=== PATIENT | female | born 1930 | race Caucasian/White ===

== ENCOUNTER 2017-05-02 09:15 | Emergency (ER) | payer MEDICARE, BC ==
[~2017-05-02] VITALS: Ht 160 cm; Wt 65.8 kg
--- NOTE | ~2017-05-02 | CR150 ---
[facility] A Service of [facility] & [facility] / [facility] RADIOLOGY TEXT RESULTS PATIENT: DINORAH CORRALES LOCATION: [facility] : 32 UNIT #: [id number] AGE: [address]: Davin Leon DO SEX: F ORDER DR: [id number] [facility] [address] [place], [place] [address] [id number] E MR#: [id number] Acc #: [id number] NAME: DINORAH CORRALES : 1930 SEX: F STUDY DATE/TIME: 05/02/2017 11:22 UNIT: [facility] ROOM: STUDY DESCRIPTION: CR Hip Min 2 Views Lt Attending Physician: Davin Leon D.O. Ordering Physician: Davin Leon D.O. Primary Care Physician: George Vázquez M.D. MEDICAL IMAGING REPORT This report is preliminary unless electronic signature is present EXAM Left two-view HISTORY Hip pain for 3 days. Known arthritis. TECHNIQUE Frontal view of the pelvis and a frog-leg view of the left hip reviewed. FINDINGS There is no acute fracture, dislocation or radiopaque foreign body suspected. There are vascular calcifications present. Partly re-demonstrated are degenerative changes in the lower lumbar spine. Sacrum is mostly obscured by overlying bowel gas and stool. IMPRESSION No acute fracture, dislocation or bone destruction appreciated left hip. Partly seen are degenerative changes of the lower lumbar spine. Dictated by... Karolyn Vidal M.D. THIS IS AN ELECTRONICALLY VERIFIED REPORT Karolyn Vidal M.D. at 05/03/2017 3:54 PM SAC/pcl TD: 05/03/2017 15:17 JOB #: [id number] MEDICAL IMAGING REPORT Page 1 of 1 COPY
--- NOTE | ~2017-05-02 | CT4 ---
[facility] A Service of [facility] & [facility] RADIOLOGY TEXT RESULTS PATIENT: DINORAH CORRALES LOCATION: [facility] : 32 UNIT #: [id number] AGE: [address]: Davin Leon DO SEX: F ORDER DR: [id number] [facility] [address] [place], [place] [address] [id number] E MR#: [id number] Acc #: [id number] NAME: DINORAH CORRALES : 1930 SEX: F STUDY DATE/TIME: 05/02/2017 12:46 UNIT: [facility] ROOM: STUDY DESCRIPTION: CT Abd and Pelv Wo Cont Attending Physician: Davin Leon D.O. Ordering Physician: Davin Leon D.O. Primary Care Physician: George Vázquez M.D. MEDICAL IMAGING REPORT This report is preliminary unless electronic signature is present EXAM CT abdomen and pelvis without contrast HISTORY Back pain and left hip pain for 2 days. No injury. TECHNIQUE CT abdomen and pelvis was performed without contrast. This CT exam was performed with one or more of the following radiation dose reduction techniques: automatic exposure control, adjustment of mA and/or kV according to patient size, and iterative reconstruction. FINDINGS CT ABDOMEN: There is a large hiatal hernia containing nearly the entire stomach, a large amount of fat, and portions of the transverse colon and splenic flexure of the colon. This is stable compared to CT 02/08/2016. Stable hemorrhagic or proteinaceous cyst in the lateral mid-right kidney measuring 1.6 cm, and stable 1 cm hemorrhagic or proteinaceous cyst in the upper pole left kidney. No renal calculi. No hydronephrosis. Cholecystectomy. The liver, spleen, pancreas, and adrenal glands are normal. Normal caliber abdominal aorta. No bowel dilatation. No ascites. Tiny umbilical hernia containing fat. CT PELVIS: Extensive sigmoid diverticulosis. No diverticulitis. No pelvic free fluid or inflammatory changes. Hysterectomy. Urinary bladder is unremarkable. Ezee-ve-sjumephd multilevel degenerative changes lower thoracic and lumbar spine. IMPRESSION 1. No acute findings. 2. Large hiatal hernia is stable compared to CT 02/08/2016. [facility]. [facility] A Service of [facility] & [facility] RADIOLOGY TEXT RESULTS PATIENT: DINORAH CORRALES LOCATION: [facility] : 32 UNIT #: [id number] AGE: [address]: Davin Leon DO SEX: F ORDER DR: 3. Sigmoid diverticulosis but no evidence of diverticulitis. 4. Incidental bilateral hemorrhagic or proteinaceous renal cysts. 5. Cholecystectomy and hysterectomy. Dictated by... Brandt Hurt M.D. THIS IS AN ELECTRONICALLY VERIFIED REPORT Brandt Hurt M.D. at 05/03/2017 3:51 PM DFL/pcl TD: 05/03/2017 15:44 JOB #: [id number] MEDICAL IMAGING REPORT Page 1 of 1 COPY
--- NOTE | ~2017-05-02 | CR181 ---
[facility] A Service of [facility] & [facility] RADIOLOGY TEXT RESULTS PATIENT: DINORAH CORRALES LOCATION: [facility] : 32 UNIT #: [id number] AGE: [address]: Davin Leon DO SEX: F ORDER DR: [id number] [facility] [address] [place], [place] [address] [id number] E MR#: [id number] Acc #: [id number] NAME: DINORAH CORRALES : 1930 SEX: F STUDY DATE/TIME: 05/02/2017 11:21 UNIT: [facility] ROOM: STUDY DESCRIPTION: CR Lumbar Spine 2 or 3 Views Attending Physician: Davin Leon D.O. Ordering Physician: Davin Leon D.O. Primary Care Physician: George Vázquez M.D. MEDICAL IMAGING REPORT This report is preliminary unless electronic signature is present EXAM Lumbar spine series 2 or 3 views HISTORY Pain lumbar spine, left hip for 3 days. Patient has arthritis. No known injury. TECHNIQUE AP, lateral and lumbosacral views lumbar spine reviewed. COMPARISON STUDIES 06/15/2015. FINDINGS There is exaggerated lumbar lordosis and exaggerated visualized thoracic kyphosis. There is anterolisthesis of L4 on L5 by about a centimeter, grade 1-2, probably due to facet arthritis. There is also grade 1 anterolisthesis of L5 on S1, which could be due to facet arthritis or pars defects. There is retrolisthesis of L2 on L3 and L1 on L2 by about 5 mm at L2-L3 and 5 mm at L1-L2. This compression deformity of T12 and to a lesser extent T11, which I believe is chronic, centered at the superior endplates. There are vascular calcifications in the abdominal aorta. There is vacuum disc formation with associated loss of disc at the L5-S1 level. IMPRESSION 1. Multilevel lumbar degenerative changes with degenerative anterolisthesis of L4 on L5 and anterolisthesis of L5 on S1, either due to facet arthritis or pars defects. Degenerative retrolisthesis of L1 on L2 and L2 on L3. This is associated with exaggerated lumbar lordosis and exaggerated thoracic kyphosis and some mild chronic compression deformities at T12 and T11. Facet degenerative STS. [facility] A Service of [facility] & [facility] RADIOLOGY TEXT RESULTS PATIENT: DINORAH CORRALES LOCATION: [facility] : 32 UNIT #: [id number] AGE: [address]: Davin Leon DO SEX: F ORDER DR: change present lower lumbar levels with multilevel loss of intervertebral disc height. Nothing to suggest acute fracture or traumatic malalignment. Dictated by... Karolyn Vidal M.D. THIS IS AN ELECTRONICALLY VERIFIED REPORT Karolyn Vidal M.D. at 05/03/2017 3:54 PM SAC/pcl TD: 05/03/2017 15:14 JOB #: [id number] MEDICAL IMAGING REPORT Page 1 of 1 COPY
[~2017-05-02 09:15] MED LIST: ACETAMINOPHEN PO; BENTYL10 MG DOB; CELEBREX PO; CENTRUM SILVER PO; COZAAR PO; DARVOCET-N 1001 TAB PO; DIOVAN PO; DSS100 M1 PO; HYDROCODON-ACE1 EAC2 PO; HYDROCODON-ACE1 EAC9 PO; HYDROCODONE-A1 UDTA3 PO; IRON1 TA1 PO; LANSOPRAZOLE30 MG PO; LEVOTHROID88 MCG PO; LEVOTHYROXINE88 MCG PO; LORTAB 7.5-5001 TAB PO; LOSARTAN POTAS100 MG PO; NABUMETONE PO; NEXIUM PO; PHENERGAN PO; PREVACID PO; SYNTHROID PO; SYNTHROID88 MCG PO; THERA-GESIC PLU85 GM TOP; VIBRAMYCIN100 M1 PO; VIT B-12 PO; VIT E PO; VITAMIN D400 UNI2; ZANTAC PO; ZANTAC150 MG PO; ZOFRAN PO; ZYRTEC10 M2 PO
[2017-05-02 11:29] LABS: BASOPHIL% 0.5 % (0-2.5); EOSINOPHIL% 0.6 % (0.0-7.0); HEMATOCRIT 34.4 % (35.0-45.0); HEMOGLOBIN 11.3 gm/dL (12.0-16.0); LYMPHOCYTE# 1.1 X10e3 (1.0-3.5); LYMPHOCYTE% 18.2 % (17.0-45.0); MEAN CELL VOLUME 97.3 FL (83-96); MEAN CORPUSCULAR HEMOGLOBIN 32.1 PG (28-34); MEAN PLATELET VOLUME 8.5 FL (6.5-11.5); MONOCYTE# 0.4 X10e3 (0-1.0); MONOCYTE% 7.3 % (3.0-12.0); NEUTROPHIL# 4.3 X10e3 (1.5-7.1); NEUTROPHIL% 73.4 % (40-75); PLATELET COUNT 284 X10e3 (140-420); RED BLOOD COUNT 3.53 X10e (3.90-5.30); RED CELL DISTRIBUTION WIDTH 13.7 % (11.0-15.5); WHITE BLOOD COUNT 5.8 X10e3 (4.0-10.5)
[2017-05-02 11:40] LABS: DIFF IND NO
[2017-05-02 11:45] LABS: PARTIAL THROMBOPLASTIN TIME 21.3 SECONDS (23.5-31.3)
[2017-05-02 12:02] LABS: ALBUMIN SERUM 4.2 g/dL (3.5-5.0); BILIRUBIN, DIRECT 0.2 mg/dL (0.0-0.2); BILIRUBIN,INDIRECT 0.3 mg/dL (0.0-0.9); BILIRUBIN,TOTAL 0.5 mg/dL (0.2-2.0); CALCIUM SERUM 9.6 mg/dL (8.4-10.2); CREATININE SERUM 0.8 mg/dL (0.6-1.4); GLOM FILT RATE Estimated 67.8 mL/min (>60); POTASSIUM 4.4 mmol/L (3.5-5.1); PROTEIN TOTAL SERUM 7.7 g/dL (6.0-8.3)
[2017-05-02 12:39] LABS: URINE SOURCE CLEAN CATCH
[2017-05-02 12:46] LABS: URINE APPEARANCE CLEAR; URINE BILIRUBIN NEG (NEG); URINE BLOOD NEG (NEG); URINE COLOR YELLOW; URINE GLUCOSE NEG (NEG); URINE KETONE NEG (NEG); URINE LEUKOCYTE ESTERASE TRACE (NEG); URINE NITRATE NEG (NEG); URINE PROTEIN NEG (NEG); URINE SPECIFIC GRAVITY 1.013 (1.003-1.035); URINE UROBILINOGEN 0.2 MG/DL (NEG)
[2017-05-02 12:49] LABS: URBCS1 AUWI 0-2 /[HPF] (0-2); URINE BACTERIA AUWI NEG (NEGATIVE); URINE SQUAMOUS EPITHELIAL CELL NONE SEEN /[HPF]
[2017-05-02 12:51] LABS: CULTURE INDICATED? NO
== END 2017-05-02 14:31 | disposition home or self-care (01) ==
LOC: CED 09:15
PROVIDERS: Emergency Medicine
DX: M54.5 Low back pain (principal); M25.552 Pain in left hip; R10.9 Unspecified abdominal pain; I10 Essential (primary) hypertension; E03.9 Hypothyroidism, unspecified; Z90.49 Acquired absence of other specified parts of digestive tract; J40 Bronchitis, not specified as acute or chronic; Z88.8 Allergy status to other drugs, medicaments and biological substances
CPT/HCPCS: 36415; 72100; 73502; 74176; 80048; 80076; 81003; 83690; 85025; 85610; 85730; 96374; 99284; J1885